=== PATIENT | female | born 1995 | race Caucasian/White ===

== ENCOUNTER 2016-07-16 10:50 | Emergency (ER) | payer BC, OTHER ==
[2016-07-16] MEDS ORDERED: Sodium Chloride 0.9% 1,000 ML PRIMARY IV ONE (10:51)
[2016-07-16] MEDS ORDERED: DIPH,PERTUSS,TET(ADACEL) VAC/PF 0.5 ML (Tdap) IM ONE (10:51)
[2016-07-16] MEDS ORDERED: MORPHINE SULFATE 4 MG/1 ML IVP ONE (10:51)
[2016-07-16] MEDS ORDERED: ONDANSETRON 4 MG/2 ML VIAL IVP ONE (10:51)
--- NOTE | 2016-07-16 10:56 | PDOC ---
Hand / Wrist Injury HPI - General Chief Complaint: Upper Extremity Problem/Injury Stated Complaint: SMASHED R 3RD DIGIT Date Seen by Provider: 07/16/16 Time Seen by Provider: 10:52 Source: POSITIVE: Patient Exam Limitations: POSITIVE: No limitations Nurse's Notes Reviewed & Considered: Yes - History of Present Illness Have you received a tetanus shot in the past 10 years?: No Body Location Affected: REPORTS: Upper Extremity (R), Other (R 3rd finger) Timing: REPORTS: Abrupt Duration: 1/2 hour Severity: Moderate Location at Time of Onset: REPORTS: Work Context: REPORTS: Crush Location of Injury: REPORTS: Right, 3rd Finger Quality: REPORTS: Aching, "Pain", Throbbing Modifying Factors: REPORTS: Movement Any Prior Injuries Related to Current Complaint?: No - Patient Allergies Allergies/Adverse Reactions: Allergies Allergy/AdvReac Type Severity Reaction Status Date / Time No Known Allergies Allergy Unverified 07/16/16 11:08 ROS - Limitations ROS Limitations: No Limitations Constitution: REPORTS: Denies Symptoms Cardiovascular: REPORTS: Denies Cardiac Symptoms Respiratory: REPORTS: Denies Resp Symptoms Neurological: REPORTS: Denies Neuro Symptoms Gastrointestinal: REPORTS: Denies GI Symptoms Endocrine: REPORTS: Denies Symptoms Musculoskeletal: REPORTS: Other (burst laceration R 3rd finger) Genitourinary: REPORTS: Denies Symptoms Eyes: REPORTS: Denies Symptoms ENT: REPORTS: Denies Symptoms Skin: REPORTS: Denies Skin Symptoms Lympathic: REPORTS: Denies Lympathic Symptoms Immunologic: POSITIVE: Denies Symptoms Psychiatric: POSITIVE: Denies Psych Symptoms Hand / Wrist Injury Exam - General Appearance General Appearance: POSITIVE: Alert, Cooperative, Mild Distress - Extremities Upper Extremity: POSITIVE: Soft Tissue Tenderness, Swelling, Ecchymosis, Deformity, Limited ROM d/t Pain, Other (2 cm laceration mackenzie aspect R 3rd finger at middle phalangie.) Neurovascular / Tendon: POSITIVE: Sensation Normal, Motor Normal, No Vascular Compromise, Tendon Function Normal Skin: POSITIVE: Warm, Dry - HEENT HEENT: POSITIVE: Head Inspection Nml, Eyes Inspection Nml, Ears Inspection Nml, Nose Inspection Nml, PERRL, EOMI - Respiratory / CVS Respiratory / CVS: POSITIVE: No Respiratory Distress - Abdomen Abdomen: Denies Tenderness: (All Quadrants) Procedure - Laceration/Wound Repair Site of Lac/Wound:: She sustained a burst injury to the middle phalanges third right finger. Maceration of the tissue, bruising present, bleeding was controlled. She had good sensations distally, with good capillary refill present. Time of Suture Placement:: 12:00 Wound Length (cm): 4 Wound's Depth, Shape: Into subcutaneous tissue, Irregular, Contused tissue Distal CMS: Yes (good sensation and range of motion present.) Skin Prep: Betadine Prep, Sterile Drapes Applied, Sterile Dressing Applied Local Anesthesia Used - Indicate Amt Used in Comment: Lidocaine 1%: Yes Wound Explored: No foreign body removed Wound Debrided: Minimal Wound Repaired With: Sutures single layer Suture Size/Type: 4:0 Number of Sutures: 7 Drain Placement: No Sterile Dressing Applied?: Yes Splint Applied?: No Sling Applied?: No Hand / Wrist Injury Progress - Results Reviewed by me Xrays/CTs/US Reviewed by me: Yes Discussed with Radiologist: Yes - Patient's Progress Pain Medication Addressed: POSITIVE: Yes Re-Examine Time: 12:03 Status: POSITIVE: Improved MDM / ED Course: After obtaining informed verbal consent, patient had her hand soaked in Betadine and normal saline. Using local anesthesia of 1% lidocaine plain, a ring block was performed at the base of the third right finger. Excellent anesthesia was obtained. Minimal debridement was obtained. Suture repair was accomplished using 4-0 nylon in interrupted fashion. Total of 7 interrupted sutures were placed with good skin edge reapproximation and good hemostasis. Patient then had her wound dressed with bacitracin ointment, Adaptic, and tube gauze. She received a tetanus update, and IV start, morphine sulfate, and Zofran and Keflex. Patient receives instructions in wound care. And instructions to follow up with orthopedic surgery for reevaluation of her wound. She receives instructions for suture removal in 7-10 days. Prescription for Keflex and Myrtle were provided. - Consult Consult (If Yes, Name of Consulting MD & Time Called): Yes (Dr. Galvez 12:00) Consulting MD will see pt:: POSITIVE: In Office Counseled: POSITIVE: Patient, Family, RE: Radiology Results, RE: DX, RE: Need for F/U Patient Care Time - Estimated PCT Patient Care Time (In Minutes): 30 Vital Signs - Recent Vital Signs Vital Signs: Vital Signs (Last 8 hours) Pulse Resp BP Pulse Ox 03/20/17 11:32 104 H 16 136/85 97 - VS Reviewed Vital Signs Reviewed: Yes Discharge Clinical Impression: Laceration of finger of right hand Discharge Disposition: Discharged to Home Condition: Good Patient Instructions Given at Discharge: Laceration (ED)
[2016-07-16] MEDS ORDERED: Lidocaine Inj 1% 20 ML ONE (11:24)
[2016-07-16] MEDS ORDERED: Lidocaine 1% 10 MG/ML - 20 ML VIAL SUBCUT ONE (11:24)
--- NOTE | 2016-07-16 11:39 | DI ---
XR FINGERS MIN 2VW,07/16/2016 10:51 AM: Clinical History: Trauma. Previous Exam: None at this facility. Findings: 3 views of the right third digit are obtained, and demonstrate soft tissue thickening overlying the m iddle interphalangeal joint of the right third digit. Skeletal structures are unremarkable. Impression: Soft tissue swelling overlying the right third digit middle interphalangeal joint without underlying fractures.
[2016-07-16 11:40] VITALS: RESP 16
[2016-07-16] MEDS ORDERED: BACITRACIN 0.9 GM PACKET OINT TOPICAL ONE (11:56)
[2016-07-16] MEDS ORDERED: CEPHALEXIN 500 MG CAPSULE PO ONE (11:57)
== END 2016-07-16 12:39 | disposition home or self-care (01) ==
LOC: ER 10:50
DX: S61.212A Laceration without foreign body of right middle finger without damage to nail, initial encounter (principal); W31.89XA Contact with other specified machinery, initial encounter; Y99.0 Civilian activity done for income or pay
CPT/HCPCS: 12002; 73140; 90471; 96361; 96374; 96375; 99282; J2001; J2270; J2405; J7030